=== PATIENT | female | born 1940 | race Hispanic/Latino ===

== ENCOUNTER 2021-08-04 19:17 | Inpatient (IN) | payer OTHER ==
[~2021-08-04] VITALS: Ht 154.9 cm; Wt 61.8 kg
[2021-08-04 20:49] LABS: BASOPHILS % (AUTO) 0.7 % (0.0-5.0); EOSINOPHILS % (AUTO) 0.1 % (0.0-8.0); HEMATOCRIT 25.8 % (36-48); MEAN CORPUSCULAR HEMOGLOBIN 31.2 pg (27.0-33.0); MEAN CORPUSCULAR HGB CONC 29.8 g/dL (32.0-36.0); MEAN CORPUSCULAR VOLUME 104.5 fL (79-99); NEUTROPHILS % (AUTO) 88.8 % (40.0-77.0); NUCLEATED RED BLOOD CELLS 0.4 % (0.0-0.19); PLATELET COUNT (AUTO) 200 K/uL (130-400); RED BLOOD CELL COUNT(AUTO) 2.47 MIL/uL (4.00-5.50); RED CELL DISTRIBUTION WIDTH 17.3 % (11.0-15.5); WHITE BLOOD COUNT (AUTO) 12.3 K/uL (4.8-10.8)
[2021-08-04 21:00] LABS: CREATININE 1.5 mg/dL (0.5-1.5); POTASSIUM 3.5 mmol/L (3.5-5.1)
[2021-08-04] MEDS ORDERED: ASPIRIN 325MG EC TAB PO ONE (21:00)
[2021-08-04] MEDS ORDERED: HEPARIN 25,000 UNITS/250ML D5W 250 ML IV SCH (21:00)
[2021-08-04 21:02] LABS: INR 1.6 (0.85-1.15); PROTHROMBIN TIME 16.7 SEC (9.6-11.6)
[2021-08-04 21:05] LABS: BILIRUBIN,TOTAL 0.5 mg/dL (0.2-1.0); TOTAL PROTEIN, SERUM 4.7 g/dL (6.0-8.3)
[2021-08-04] MEDS ORDERED: ONDANSETRON 4MG INJ IV PRN (21:30)
[2021-08-04] MEDS ORDERED: MORPHINE 2 MG SYG IV PRN (21:30)
[2021-08-04] MEDS ORDERED: MORPHINE 4 MG SYG IV PRN (21:30)
[2021-08-04] MEDS ORDERED: ASPIRIN 325MG TAB ONE (21:35)
[2021-08-04] MEDS ORDERED: HEPARIN 25,000 UNITS/250ML D5W 250 ML IV ONE (21:36)
[2021-08-04] MEDS ORDERED: HEPARIN 5,000 UNIT VIAL ONE (21:45)
[2021-08-04] MEDS: 0.9%NACL 1000ML 1,000 ML IV SCH (22:27)
[2021-08-05] VITALS (7 sets, daily range): BP systolic 101–144; BP diastolic 45–78
[2021-08-05] MEDS ORDERED: LEVO50CA4 PO (02:09)
[2021-08-05] MEDS ORDERED: ATOR40TA71 PO (02:09)
[2021-08-05] MEDS ORDERED: AMLO5TAB5 PO (02:09)
[2021-08-05] MEDS ORDERED: METF-446 PO (02:11)
[2021-08-05] MEDS ORDERED: GLIP10TA19 PO (02:11)
[2021-08-05] MEDS ORDERED: PANT40TA54 PO (02:11)
[2021-08-05 02:42] LABS: CREATININE 1.3 mg/dL (0.5-1.5); MAGNESIUM 1.8 mg/dL (1.80-2.40); PHOSPHORUS 5.7 mg/dL (2.5-4.9)
[2021-08-05 02:46] LABS: POTASSIUM 2.6 mmol/L (3.5-5.1)
[2021-08-05 02:56] LABS: HEMOGLOBIN A1C 8.3 % (4.0-6.0)
[2021-08-05 02:59] LABS: BASOPHILS % (AUTO) 0.4 % (0.0-5.0); EOSINOPHILS % (AUTO) 0.1 % (0.0-8.0); LYMPHOCYTES % (AUTO) 10.7 % (21.0-51.0); MEAN CORPUSCULAR HEMOGLOBIN 30.5 pg (27.0-33.0); MEAN CORPUSCULAR HGB CONC 30.5 g/dL (32.0-36.0); MONOCYTES % (AUTO) 1.9 % (3.0-13.0); NEUTROPHILS % (AUTO) 84.9 % (40.0-77.0); NUCLEATED RED BLOOD CELLS 0.3 % (0.0-0.19); PLATELET COUNT (AUTO) 188 K/uL (130-400); RED CELL DISTRIBUTION WIDTH 17.4 % (11.0-15.5); WHITE BLOOD COUNT (AUTO) 18.6 K/uL (4.8-10.8)
[2021-08-05] MEDS ORDERED: MAGNESIUM 2GM PREMIX 50ML 50 ML IV PRN (04:30)
[2021-08-05] MEDS ORDERED: POTASSIUM CHLORIDE 20MEQ/100ML 100 ML IV PRN (04:30)
[2021-08-05] MEDS ORDERED: LIDOCAINE HCL-MPF 1% 2ML VIAL IV PRN (04:30)
[2021-08-05] MEDS ORDERED: PANTOPRAZOLE 40 MG/VIAL IVP SCH (06:00)
[2021-08-05 06:43] LABS: % IRON SATURATION 34.3 % (22-44)
[2021-08-05] MEDS ORDERED: PHARMACY COMMUNICATION MISC SCH (09:00)
[2021-08-05] MEDS ORDERED: VANCOMYCIN PROTOCOL PER PHARMACY IV PRN (09:00)
[2021-08-05] MEDS ORDERED: FAMOTIDINE 20MG VIAL IV SCH (09:00)
[2021-08-05] MEDS ORDERED: CEFEPIME HCL 2 GM VIAL IVP SCH (09:00)
[2021-08-05] MEDS ORDERED: VANCOMYCIN PROTOCOL PER PHARMACY IV SCH (09:00)
[2021-08-05] MEDS ORDERED: KCL 20 MEQ ERTAB PO SCH (09:30)
[2021-08-05] MEDS: MEROPENEM 500 MG VIAL IV SCH ×2 (09:50→17:21)
[2021-08-05] MEDS ORDERED: VANCOMYCIN 1G/250ML KIT 250 ML IV SCH (10:00)
[2021-08-05] MEDS: INSULIN HUMULIN R 100 UNIT/ML 3ML SQ SCH ×3 (11:30→21:00)
[2021-08-05] MEDS: 0.9%NACL 1000ML 1,000 ML IV SCH (12:48)
[2021-08-05 13:38] LABS: APPEARANCE,URINE CLEAR (CLEAR); BILIRUBIN,URINE MODERATE (NEGATIVE); COLOR,URINE YELLOW (YELLOW); GLUCOSE, URINE (UA) NEGATIVE (NEGATIVE); KETONES,URINE 15 mg/dL (NEGATIVE); LEUKOCYTE ESTERASE ,URINE NEGATIVE (NEGATIVE); NITRATE,URINE NEGATIVE (NEGATIVE); OCCULT BLOOD,URINE TRACE-INTACT (NEGATIVE); PH,URINE 5.5 (5.0-8.0); PROTEIN,URINE 100 mg/dL (NEGATIVE)
[2021-08-05 14:10] LABS: BACTERIA,URINE Few /HPF (None Seen); MUCUS,URINE Few LPF (None Seen); RBC,URINE 0-1 /HPF (0-1); SQUAMOUS EPITHELIAL CELL,UR Few /HPF (0-2)
[2021-08-05 16:09] LABS: BASOPHILS % (AUTO) 0.8 % (0.0-5.0); LYMPHOCYTES % (AUTO) 8.2 % (21.0-51.0); MEAN CORPUSCULAR HEMOGLOBIN 27.9 pg (27.0-33.0); MEAN CORPUSCULAR HGB CONC 31.5 g/dL (32.0-36.0); MEAN CORPUSCULAR VOLUME 88.8 fL (79-99); MONOCYTES % (AUTO) 1.8 % (3.0-13.0); NEUTROPHILS % (AUTO) 87.9 % (40.0-77.0); NUCLEATED RED BLOOD CELLS 0.4 % (0.0-0.19); PLATELET COUNT (AUTO) 155 K/uL (130-400); RED BLOOD CELL COUNT(AUTO) 3.83 MIL/uL (4.00-5.50); RED CELL DISTRIBUTION WIDTH 20.4 % (11.0-15.5)
[2021-08-05 16:21] LABS: CREATININE 1.2 mg/dL (0.5-1.5); MAGNESIUM 2.1 mg/dL (1.80-2.40); POTASSIUM 3.3 mmol/L (3.5-5.1)
[2021-08-05] MEDS ORDERED: POTASSIUM CHLORIDE 10% ELIXIR 20 MEQ/15 ML UDCUP PO PRN (16:30)
[2021-08-05] MEDS: KCL 20 MEQ ERTAB PO PRN ×2 (17:21→22:30)
[2021-08-05] MEDS ORDERED: PEG 3350/NA SULF,BICARB,CL/KCL 4000 ML SOLN PO SCH (17:25)
[2021-08-05] MEDS ORDERED: FUROSEMIDE 40MG VIAL IV STA (19:43)
[2021-08-05] MEDS: PANTOPRAZOLE 40 MG/VIAL IVP SCH (21:40)
[2021-08-05] MEDS: BALSAM PERU/CASTOR OIL 60 GM TUBE TP SCH (21:41)
[2021-08-06] VITALS (84 sets, daily range): BP systolic 0–191; BP diastolic 0–110
[2021-08-06 00:51] LABS: ABG HCO3 15.5 mmol/L (21.0-28.0); ABG OXYGEN SATURATION 92.1 % (95.0-99.0); ABG PCO2 25 mmHg (32-45)
[2021-08-06] MEDS: MEROPENEM 500 MG VIAL IV SCH ×3 (01:36→17:10)
[2021-08-06] MEDS ORDERED: HYDROMORPHONE 1 MG INJ IVP ONE (04:19)
[2021-08-06 04:38] LABS: BASOPHILS % (AUTO) 0.1 % (0.0-5.0); EOSINOPHILS % (AUTO) 0.1 % (0.0-8.0); HEMATOCRIT 35.2 % (36-48); LYMPHOCYTES % (AUTO) 5.7 % (21.0-51.0); MEAN CORPUSCULAR HEMOGLOBIN 29.2 pg (27.0-33.0); MEAN CORPUSCULAR HGB CONC 32.7 g/dL (32.0-36.0); MEAN CORPUSCULAR VOLUME 89.3 fL (79-99); MONOCYTES % (AUTO) 1.3 % (3.0-13.0); NEUTROPHILS % (AUTO) 91.5 % (40.0-77.0); NUCLEATED RED BLOOD CELLS 1.6 % (0.0-0.19); PLATELET COUNT (AUTO) 185 K/uL (130-400); RED BLOOD CELL COUNT(AUTO) 3.94 MIL/uL (4.00-5.50); RED CELL DISTRIBUTION WIDTH 22.3 % (11.0-15.5); WHITE BLOOD COUNT (AUTO) 15.2 K/uL (4.8-10.8)
[2021-08-06 04:51] LABS: % IRON SATURATION 52.7 % (22-44)
[2021-08-06 05:21] LABS: ALBUMIN 0.9 g/dL (3.5-5.0); BILIRUBIN,TOTAL 0.5 mg/dL (0.2-1.0); CREATININE 2.2 mg/dL (0.5-1.5); MAGNESIUM 2.1 mg/dL (1.80-2.40); PHOSPHORUS 5.6 mg/dL (2.5-4.9); POTASSIUM 5.5 mmol/L (3.5-5.1); THYROID STIMULATING HORMONE 6.13 uIU/mL (0.36-3.74); TOTAL PROTEIN, SERUM 4.8 g/dL (6.0-8.3)
[2021-08-06] MEDS ORDERED: ALBUTEROL 0.083% 2.5 MG/3 ML INH IH SCH (06:00)
[2021-08-06] MEDS ORDERED: DEXTROSE 50%-WATER 50 ML DISP.SYRIN IV ONE (06:24)
[2021-08-06] MEDS: INSULIN HUMULIN R 100 UNIT/ML 3ML SQ SCH (06:31)
[2021-08-06 07:17] LABS: ABG BASE EXCESS -19.2 mmol/L (-2.0-3.0); ABG HCO3 6.8 mmol/L (21.0-28.0); ABG OXYGEN SATURATION 87.1 % (95.0-99.0); ABG PCO2 19 mmHg (32-45)
[2021-08-06] MEDS ORDERED: ATROPINE 1MG SYG IVP SCH (08:01)
[2021-08-06] MEDS ORDERED: FENTANYL CITRATE PF 0.05 MG/ML 1,000 MCG in 0.9%NACL 100ML 100 ML IVPB STA (08:01)
[2021-08-06] MEDS ORDERED: MIDAZOLAM HCL 1 MG/ML 2ML VIAL ONE (08:03)
[2021-08-06] MEDS ORDERED: NOREPINEPHRIN 4MG/NS 250ML 250 ML IV ONE (08:03)
[2021-08-06] MEDS ORDERED: FENTANYL CITRATE PF 50 MCG/1 ML 2ML VIAL ONE (08:04)
[2021-08-06] MEDS ORDERED: FENTANYL 2500MCG+NS 250ML 250 ML IV ONE (08:04)
[2021-08-06] MEDS ORDERED: 0.9%NACL 1000ML 1,000 ML IV ONE ×2 (08:05→09:49)
[2021-08-06] MEDS ORDERED: FENTANYL 2500MCG+NS 250ML 250 ML IV SCH (08:30)
[2021-08-06] MEDS ORDERED: FUROSEMIDE 40MG VIAL IV SCH (09:00)
[2021-08-06] MEDS ORDERED: VANCOMYCIN 500MG+NS 100ML 100 ML IV SCH (09:00)
[2021-08-06] MEDS: BALSAM PERU/CASTOR OIL 60 GM TUBE TP SCH ×3 (09:00→19:56)
[2021-08-06 09:15] LABS: INR 1.98 (0.85-1.15); PROTHROMBIN TIME 20.3 SEC (9.6-11.6)
[2021-08-06 09:16] LABS: PARTIAL THROMBOPLASTIN TIME 54.6 SEC (26.3-35.5)
[2021-08-06] MEDS ORDERED: SODIUM BICARB 8.4% 50ML SYRING 0 MEQ in DEXTROSE 5%-WATER 1,000 ML IVP SCH (09:30)
[2021-08-06] MEDS ORDERED: NA ZIRCON CYCLOSIL(LOKELMA 10GM) PO SCH (09:30)
[2021-08-06] MEDS: PANTOPRAZOLE 40 MG/VIAL IVP SCH ×2 (09:39→19:55)
[2021-08-06 09:50] LABS: CREATININE,URINE RANDOM 208 mg/dL (30-135); SODIUM,URINE RANDOM < 14 mmol/l (40-220)
[2021-08-06] MEDS ORDERED: 0.9%NACL 1000ML 1,000 ML IV SCH (10:00)
[2021-08-06 10:32] LABS: ABG BASE EXCESS -15.8 mmol/L (-2.0-3.0); ABG HCO3 9.1 mmol/L (21.0-28.0); ABG OXYGEN SATURATION 98.9 % (95.0-99.0); ABG PCO2 20 mmHg (32-45)
[2021-08-06] MEDS: SODIUM BICARB 8.4% 50ML SYRING 150 MEQ in DEXTROSE 5%-WATER 850 ML IVP SCH (10:45)
[2021-08-06] MEDS ORDERED: CALCIUM GLUC 1GM/10ML VIAL IV STA (10:53)
[2021-08-06] MEDS: VANCOMYCIN 500MG+NS 100ML 100 ML IV SCH (11:00)
[2021-08-06] MEDS ORDERED: CALCIUM GLUC 1GM 1 GM in 0.9%NACL 100ML 100 ML IV SCH (11:30)
[2021-08-06] MEDS ORDERED: SODIUM BICARB 50MEQ 50ML VIAL 100 ML ONE (12:09)
[2021-08-06] MEDS ORDERED: SODIUM BICARB 50MEQ 50ML VIAL IV SCH (12:30)
[2021-08-06] MEDS ORDERED: 0.9% NACL 500ML IV.SOLN 500 ML IV ONE (13:18)
[2021-08-06] MEDS: NOREPINEPHRIN 4MG/NS 250ML 250 ML IV SCH (17:19)
[2021-08-06 19:08] LABS: ABG BASE EXCESS -14.8 mmol/L (-2.0-3.0); ABG HCO3 10.2 mmol/L (21.0-28.0); ABG OXYGEN SATURATION 98.8 % (95.0-99.0); ABG PCO2 22 mmHg (32-45)
[2021-08-06] MEDS ORDERED: SODIUM BICARB 8.4% 50ML SYRINGE IVP SCH (20:00)
[2021-08-06] MEDS ORDERED: CALCIUM GLUC 1GM/10ML VIAL IV ONE (20:00)
[2021-08-07] VITALS (57 sets, daily range): BP systolic 63–170; BP diastolic 19–102
[2021-08-07] MEDS: MEROPENEM 500 MG VIAL IV SCH ×3 (00:37→16:24)
[2021-08-07] MEDS: NOREPINEPHRIN 4MG/NS 250ML 250 ML IV SCH ×3 (00:39→20:20)
[2021-08-07] MEDS: SODIUM BICARB 8.4% 50ML SYRING 150 MEQ in DEXTROSE 5%-WATER 850 ML IVP SCH (02:37)
[2021-08-07 03:38] LABS: BASOPHILS % (AUTO) 0.1 % (0.0-5.0); HEMATOCRIT 30.4 % (36-48); LYMPHOCYTES % (AUTO) 11.3 % (21.0-51.0); MEAN CORPUSCULAR HGB CONC 29.6 g/dL (32.0-36.0); MEAN CORPUSCULAR VOLUME 94.4 fL (79-99); MONOCYTES % (AUTO) 1.7 % (3.0-13.0); NUCLEATED RED BLOOD CELLS 5.2 % (0.0-0.19); PLATELET COUNT (AUTO) 111 K/uL (130-400); RED BLOOD CELL COUNT(AUTO) 3.22 MIL/uL (4.00-5.50); RED CELL DISTRIBUTION WIDTH 23.4 % (11.0-15.5); WHITE BLOOD COUNT (AUTO) 17.1 K/uL (4.8-10.8)
[2021-08-07 04:05] LABS: ALANINE AMINOTRANSFERASE 570 U/L (12-78); BILIRUBIN,TOTAL 0.4 mg/dL (0.2-1.0); CARBON DIOXIDE 17 mmol/L (21-32); CHLORIDE 108 mmol/L (101-111); CREATININE 2.3 mg/dL (0.5-1.5); GLOMERULAR FILTR. RATE CALC 22 mL/min (>60); GLUCOSE,RANDOM 181 mg/dL (70-105); PHOSPHORUS 8.5 mg/dL (2.5-4.9); POTASSIUM 5.9 mmol/L (3.5-5.1); SODIUM SERUM 149 mmol/L (136-145); TOTAL PROTEIN, SERUM 3.6 g/dL (6.0-8.3); UREA NITROGEN, BLOOD 32 mg/dL (7-18)
[2021-08-07 04:06] LABS: ALBUMIN < 0.6 g/dL (3.5-5.0)
[2021-08-07 04:09] LABS: ASPARTATE AMINOTRANSFERASE 1866 U/L (10-37)
[2021-08-07 04:10] LABS: ABG BASE EXCESS -3.6 mmol/L (-2.0-3.0); ABG HCO3 19.1 mmol/L (21.0-28.0); ABG OXYGEN SATURATION 96.9 % (95.0-99.0); ABG PCO2 29 mmHg (32-45)
[2021-08-07 04:22] LABS: LYMPHOCYTES % (MANUAL) 16 % (22-44); MAN.DIFF COMMENT-IMPRESSION MANUAL DIFFERENTIAL; MYELOCYTES % 1 % (0-0); SEGMENTED NEUTROPHILS % 83 % (40-70)
[2021-08-07 04:25] LABS: PLATELET MORPHOLOGY COMMENT SLIGHTLY DECREASED
[2021-08-07] MEDS: PANTOPRAZOLE 40 MG/VIAL IVP SCH ×2 (09:24→20:19)
[2021-08-07] MEDS: BALSAM PERU/CASTOR OIL 60 GM TUBE TP SCH ×3 (09:42→20:19)
[2021-08-07] MEDS ORDERED: SODIUM ZIRCONIUM CYCLOSILICATE 5 GM POWD.PACK PO SCH (14:00)
[2021-08-08] VITALS (71 sets, daily range): BP systolic 81–137; BP diastolic 31–82
[2021-08-08] MEDS: MEROPENEM 500 MG VIAL IV SCH ×3 (01:58→16:19)
[2021-08-08] MEDS: NOREPINEPHRIN 4MG/NS 250ML 250 ML IV SCH ×2 (01:59→07:19)
[2021-08-08 03:43] LABS: BASOPHILS % (AUTO) 0.5 % (0.0-5.0); HEMATOCRIT 25.2 % (36-48); LYMPHOCYTES % (AUTO) 10.1 % (21.0-51.0); MEAN CORPUSCULAR HGB CONC 29.4 g/dL (32.0-36.0); MEAN CORPUSCULAR VOLUME 95.5 fL (79-99); NEUTROPHILS % (AUTO) 83.1 % (40.0-77.0); NUCLEATED RED BLOOD CELLS 6.3 % (0.0-0.19); RED BLOOD CELL COUNT(AUTO) 2.64 MIL/uL (4.00-5.50); RED CELL DISTRIBUTION WIDTH 23.3 % (11.0-15.5)
[2021-08-08 04:08] LABS: CARBON DIOXIDE 14 mmol/L (21-32); CHLORIDE 103 mmol/L (101-111); GLOMERULAR FILTR. RATE CALC 16 mL/min (>60); GLUCOSE,RANDOM 140 mg/dL (70-105); SODIUM SERUM 147 mmol/L (136-145); UREA NITROGEN, BLOOD 41 mg/dL (7-18)
[2021-08-08 04:17] LABS: PLATELET COUNT (AUTO) 108 K/uL (130-400)
[2021-08-08 04:35] LABS: POTASSIUM 7.1 mmol/L (3.5-5.1)
[2021-08-08 04:55] LABS: ABG BASE EXCESS -14.1 mmol/L (-2.0-3.0); ABG OXYGEN SATURATION 97.6 % (95.0-99.0); ABG PCO2 25 mmHg (32-45)
[2021-08-08 05:16] LABS: ALANINE AMINOTRANSFERASE 563 U/L (12-78); BILIRUBIN,TOTAL 0.4 mg/dL (0.2-1.0); TOTAL PROTEIN, SERUM 2.9 g/dL (6.0-8.3)
[2021-08-08] MEDS ORDERED: SODIUM BICARB 50MEQ 50ML VIAL 50 ML ONE (05:17)
[2021-08-08 05:24] LABS: BAND NEUTROPHILS % (MANUAL) 16 % (0-2); LYMPHOCYTES % (MANUAL) 17 % (22-44); MAN.DIFF COMMENT-IMPRESSION MANUAL DIFFERENTIAL; METAMYELOCYTES % 1 % (0-0); SEGMENTED NEUTROPHILS % 66 % (40-70)
[2021-08-08] MEDS ORDERED: SODIUM BICARB 50MEQ 50ML VIAL IV ONE (05:30)
[2021-08-08 05:57] LABS: ALBUMIN < 0.6 g/dL (3.5-5.0)
[2021-08-08 06:12] LABS: ASPARTATE AMINOTRANSFERASE 4153 U/L (10-37)
[2021-08-08 06:27] LABS: PHOSPHORUS 10.9 mg/dL (2.5-4.9)
[2021-08-08] MEDS ORDERED: KAYEXALATE 15GM/60ML PO SCH (06:30)
[2021-08-08 06:53] LABS: CREATINE KINASE, TOTAL 6292 U/L (21-232)
[2021-08-08] MEDS ORDERED: INSULIN HUMULIN R 100 UNIT/ML 3ML SQ ONE (07:30)
[2021-08-08] MEDS ORDERED: DEXTROSE 50%-WATER 50 ML DISP.SYRIN IV SCH (07:30)
[2021-08-08] MEDS ORDERED: 0.9%NACL 50ML IV SCH (07:30)
[2021-08-08] MEDS: SODIUM BICARB 8.4% 50ML SYRING 150 MEQ in DEXTROSE 5%-WATER 850 ML IVP SCH ×3 (07:39→17:49)
[2021-08-08] MEDS ORDERED: ALBUTEROL 0.083% 2.5 MG/3 ML INH IH SCH (08:00)
[2021-08-08] MEDS ORDERED: INSULIN HUMULIN R 100 UNIT/ML 3ML IV SCH (08:00)
[2021-08-08] MEDS: PANTOPRAZOLE 40 MG/VIAL IVP SCH (08:26)
[2021-08-08] MEDS: CALCIUM GLUC 1GM/10ML VIAL IVPB SCH ×2 (08:27→14:30)
[2021-08-08] MEDS ORDERED: NOREPINEPHRINE BITARTRATE 32 MG in 0.9% NACL 250ML 250 ML IV SCH (09:00)
[2021-08-08] MEDS: VANCOMYCIN 500MG+NS 100ML 100 ML IV SCH (11:00)
[2021-08-08] MEDS: BALSAM PERU/CASTOR OIL 60 GM TUBE TP SCH ×2 (11:49→14:25)
[2021-08-08] MEDS ORDERED: SODIUM BICARB 50MEQ 50ML VIAL IV SCH (13:30)
[2021-08-08] MEDS ORDERED: CALCIUM GLUC 1GM/10ML VIAL IV STA (13:36)
[2021-08-08] MEDS ORDERED: CALCIUM GLUC 1 GM/NS 50ML IV PRN ×2 (14:00)
[2021-08-08] MEDS ORDERED: GLYCOPYRROLATE 1 MG/5 ML SYRINGE IV PRN (17:30)
[2021-08-08] MEDS ORDERED: LORAZEPAM 2 MG/ML 1 ML VIAL IVP PRN (17:30)
[2021-08-08] MEDS ORDERED: MORPHINE 2 MG SYG IVP SCH (17:30)
[2021-08-08] MEDS ORDERED: MORPHINE 2 MG SYG IVP PRN (18:00)
== END 2021-08-08 20:38 | DRG 871 ==
LOC: EDH 19:17 → EDHIP 21:09 → 2AH 08-05 01:59 → 2BH 08-06 07:58
PROVIDERS: ADMIT Internal Medicine; ATTEND Internal Medicine
PROC: 5A09357 Assistance with Respiratory Ventilation, Less than 24 Consecutive Hours, Continuous Positive Airway Pressure (ICD-10-PCS; 2021-08-05)
PROC: 30233N1 Transfusion of Nonautologous Red Blood Cells into Peripheral Vein, Percutaneous Approach (ICD-10-PCS; 2021-08-05)
PROC: 0DH67UZ Insertion of Feeding Device into Stomach, Via Natural or Artificial Opening (ICD-10-PCS; 2021-08-05)
PROC: 5A1945Z Respiratory Ventilation, 24-96 Consecutive Hours (ICD-10-PCS; principal; 2021-08-06)
PROC: 0BH17EZ Insertion of Endotracheal Airway into Trachea, Via Natural or Artificial Opening (ICD-10-PCS; 2021-08-06)
PROC: 5A09357 Assistance with Respiratory Ventilation, Less than 24 Consecutive Hours, Continuous Positive Airway Pressure (ICD-10-PCS; 2021-08-06)
DX: A41.9 Sepsis, unspecified organism (principal); R65.21 Severe sepsis with septic shock; J18.9 Pneumonia, unspecified organism; J96.01 Acute respiratory failure with hypoxia; K72.00 Acute and subacute hepatic failure without coma; D62 Acute posthemorrhagic anemia; N17.9 Acute kidney failure, unspecified; G93.40 Encephalopathy, unspecified; K92.1 Melena; K56.609 Unspecified intestinal obstruction, unspecified as to partial versus complete obstruction; E87.0 Hyperosmolality and hypernatremia; L03.90 Cellulitis, unspecified; M62.82 Rhabdomyolysis; E11.52 Type 2 diabetes mellitus with diabetic peripheral angiopathy with gangrene; I96 Gangrene, not elsewhere classified; E78.5 Hyperlipidemia, unspecified; E03.9 Hypothyroidism, unspecified; N18.30 Chronic kidney disease, stage 3 unspecified; Z20.822 Contact with and (suspected) exposure to COVID-19; E11.22 Type 2 diabetes mellitus with diabetic chronic kidney disease; I12.9 Hypertensive chronic kidney disease with stage 1 through stage 4 chronic kidney disease, or unspecified chronic kidney disease; I25.10 Atherosclerotic heart disease of native coronary artery without angina pectoris; F17.210 Nicotine dependence, cigarettes, uncomplicated; F03.90 Unspecified dementia, unspecified severity, without behavioral disturbance, psychotic disturbance, mood disturbance, and anxiety; L89.320 Pressure ulcer of left buttock, unstageable; Z83.3 Family history of diabetes mellitus; Z82.49 Family history of ischemic heart disease and other diseases of the circulatory system; Z90.710 Acquired absence of both cervix and uterus; E87.6 Hypokalemia; E11.65 Type 2 diabetes mellitus with hyperglycemia; E78.00 Pure hypercholesterolemia, unspecified; I70.222 Atherosclerosis of native arteries of extremities with rest pain, left leg; L97.529 Non-pressure chronic ulcer of other part of left foot with unspecified severity; D69.6 Thrombocytopenia, unspecified; Z66 Do not resuscitate; E87.5 Hyperkalemia
CPT/HCPCS: 31500; 36415; 36430; 36600; 71045; 74018; 80048; 80053; 80202; 81001; 82270; 82435; 82550; 82570; 82607; 82728; 82746; 82803; 82947; 82948; 83036; 83540; 83550; 83605; 83735; 83874; 83880; 84100; 84132; 84145; 84295; 84300; 84443; 84484; 85018; 85025; 85045; 85378; 85610; 85651; 85730; 86140; 86850; 86900; 86901; 86923; 87040; 87088; 87493; 87635; 93005; 93930; 93970; 94002; 94003; 94640; 94660; 94664; C1751; C1894; C9113; G0378; J0610; J0692; J1170; J1644; J1815; J1940; J2060; J2185; J2250; J3010; J3370; J3475; J3480; J3490; J7030; J7040; J7050; J7070; P9016